=== PATIENT | male | born 1965 | race Caucasian/White ===

== ENCOUNTER → 2021-04-17 11:38 | Outpatient (CLI) | payer MEDICAID, SELFPAY | PROVIDERS: Visit Provider Internal Medicine Adolescent Medicine | DX: Z01.812 Encounter for preprocedural laboratory examination (principal); Z11.52 Encounter for screening for COVID-19; D17.9 Benign lipomatous neoplasm, unspecified | CPT/HCPCS: C9803; U0003; U0005 ==

== ENCOUNTER 2021-04-20 06:28 | Day surgery (SDC) | payer MEDICAID, SELFPAY ==
[2021-04-20] VITALS (10 sets, daily range): BP systolic 100–170; BP diastolic 60–95; PULSE 56–64; RESP 12–20; TEMP 36.3–36.6; O2SAT 94–100; BMI 23.7
--- NOTE | 2021-04-20 08:47 | HMH.OPNOTE ---
Date of procedure: 04/20/21 Pre-op Diagnosis:: Right chest/flank lipoma (3 cm) Post-op Diagnosis:: Same Procedure performed:: Excision of right chest/flank lipoma (3 cm) Surgeon:: Sav Jewell MD CONFERENCE RESERVATIONIST:: Jacky Shafer Anesthesia: LMA Estimated blood loss (mL): 5 Operative findings:: 3 cm lipomatous lesion in deep subcutaneous tissue Operative note:: After informed consent was obtained the patient was taken to the operating room and placed in the supine position. General anesthesia with laryngeal mask airway was achieved. His right chest/flank was prepped and draped in a sterile fashion. After infiltration local anesthetic an incision was made over the palpable lesion. The deep subcutaneous tissue was dissected with a combination of scalpel, electrocautery, and blunt dissection. A lipomatous lesion in the deep subcutaneous tissue was elevated and excised in toto. The lesion was passed off for pathologic evaluation. Electrocautery was utilized to achieve hemostasis. The subcutaneous tissue was reapproximated with interrupted Vicryl. Skin was then closed with 3-0 Stratafix. Dressings were applied and the patient was transferred to recovery in stable condition. Condition: stable Disposition: PACU Specimens:: Right chest/flank lipoma Complications:: No immediate
--- NOTE | 2021-04-20 08:55 | P.PN_ITS ---
[facility] Anesthesia Checklist - Structural Data Admitted From: Home Planned Operative Procedure/s: excision neoplasm r flank Consent for Planned Operative Procedure(s) Verified: Yes - Additional verifications Anesthesia Reactions: No Hx Blood Transfusions: No Blood Transfusion Reaction: No - Airway Assessment C-Spine Mobility Assessed: Yes TMJ Mobility Assessed: Yes Dentition: Poor Dentition - Neurological Assessment Level of Consciousness: Awake, Alert, Appropriate - Anesthesia Plan Anesthesia Risk discussed: Yes Anesthesia Plan: Verified ASA Class: III Anesthesia Type: General [facility] History I have reviewed the patient's past medical history: Yes Medical History: Reports:: Anxiety, Cancer (melanoma), Depression, Diabetes Mellitus Type 2, Hypertension Denies:: Diabetes Mellitus Type 1, Internal Pacemaker, MRSA, Seizures *Have you ever received a pneumonia vaccine?: Yes *Have you received a flu vaccine this season?: Yes Other Medical History: Denies: Blood Transfusion Reaction Anesthesia experience/problems:: none Other Surgeries: Yes: Other. 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
--- NOTE | 2021-04-20 08:56 | HMH.ANESI ---
[facility] Anesthesia Record Part I Intake, IV Amount: 500 Estimated blood loss (mL): 0 Urine output (mL): 0 Blood Pressure: 100/60 SaO2: 95 Pulse Rate: 56 Respiratory Rate: 12 Temperature: 97.5 F Patient is:: Awake, Stable Stable to PACU at:: 08:55
[2021-04-20 09:05] LABS: POC Glucose,Bedside 87 (70-110)
--- NOTE | 2021-04-24 09:22 | HMH.ANESII ---
[facility] Anesthesia Record Part II Discharge Time: 09:25 Destination: [facility] PACU nurse assessment reviewed?: Yes Patient Condition:: Good Anesthesia Complications:: None Swallowing reflex intact?: Yes Cyanosis?: No Blood Pressure: 152/82 Pulse Rate: 61 Temperature: 97.4 F Mental Status: Alert & Oriented, Unresponsive Pain level:: 8 Nausea and/or vomitting:: None Intake, IV Amount: 900
[2021-04-24 09:23] VITALS: BP 152/82; PULSE 61; TEMP 36.3
[2021-11-23 10:57] LABS: POC Glucose,Bedside 85 (70-110)
== END 2021-04-20 10:18 | disposition home or self-care (01) ==
LOC: OR 06:29
PROVIDERS: PCP Internal Medicine Adolescent Medicine; Visit Provider Surgery
PROC: (CPT 11403; principal; 2021-04-20 08:30)
DX: D17.1 Benign lipomatous neoplasm of skin and subcutaneous tissue of trunk (principal); F41.9 Anxiety disorder, unspecified; F32.A Depression, unspecified; I10 Essential (primary) hypertension; E11.9 Type 2 diabetes mellitus without complications; Z85.820 Personal history of malignant melanoma of skin; Z72.0 Tobacco use; Z80.9 Family history of malignant neoplasm, unspecified
CPT/HCPCS: 11403; 12031; 82962; 96374; J2405